=== PATIENT | male | born 1980 | race Caucasian/White ===

== ENCOUNTER 2019-10-29 10:08 | Emergency (ER) | payer SELFPAY ==
[~2019-10-29] VITALS: Ht 170.2 cm; Wt 90.7 kg
--- NOTE | 2019-10-29 10:17 | NUR ---
dr sullivan at bedside for eval.
--- NOTE | 2019-10-29 10:18 | NUR ---
ambulatory to er bed 09. presents w/ L 5th finger avulsion approx 2cm. states was cut with a knife while going through his tool box. pt states UTD to tetanus shot 3 weeks ago at another hospital. vss. awaiting md mcgraw.
[2019-10-29] MEDS ORDERED: TDAP [DIPH/PERTUSSIS/TET] 0.5 ML VIAL IM ONE ×2 (10:21→10:30)
--- NOTE | 2019-10-29 10:35 | NUR ---
patient refused tetanus shot. states just got one 3 weeks ago at a different hospital.
--- NOTE | 2019-10-29 11:15 | NUR ---
provided w/ wound care. repapire using skin adhesive and steristrips. pt d/c home in stable condition.
[2019-10-29 11:18] VITALS: BP 132/76
== END 2019-10-29 11:19 | disposition home or self-care (01) ==
LOC: ER 10:08
DX: S61.217A Laceration without foreign body of left little finger without damage to nail, initial encounter (principal); W26.0XXA Contact with knife, initial encounter; Y93.89 Activity, other specified; Y92.89 Other specified places as the place of occurrence of the external cause; Y99.8 Other external cause status
CPT/HCPCS: 90715